=== PATIENT | male | born 1965 | race Caucasian/White ===

== ENCOUNTER 2024-07-17 21:16 | Emergency (ER) | payer BC ==
[2024-07-17] MEDS: Mupirocin Oint 22 GM Tube TOP ONE (21:51)
[2024-07-17] MEDS: Diphtheria,Pertussis(Acell),Tetanus Vaccine 0.5 ML Syringe IM ONE (21:52)
== END 2024-07-17 22:15 | disposition home or self-care (01) ==
LOC: JD.ED 21:16
DX: S61.411A Laceration without foreign body of right hand, initial encounter (principal); Z23 Encounter for immunization; Z79.899 Other long term (current) drug therapy; Z87.891 Personal history of nicotine dependence; W21.00XA Struck by hit or thrown ball, unspecified type, initial encounter
CPT/HCPCS: 90471; 90715; 99282; A9270